=== PATIENT | male | born 1990 | race Caucasian/White ===

== ENCOUNTER 2022-09-25 19:36 | Emergency (ER) | payer MEDICAID ==
[~2022-09-25] VITALS: Ht 167.6 cm; Wt 97.5 kg
[2022-09-25 19:53] VITALS: BP_SYST 132
[2022-09-25] MEDS ORDERED: ONDA-8 TL (20:10)
[2022-09-25 20:16] VITALS: BP_SYST 132
== END 2022-09-25 20:16 | disposition home or self-care (01) ==
LOC: SED 19:36
DX: A08.4 Viral intestinal infection, unspecified (principal)
CPT/HCPCS: 99283